=== PATIENT | female | born 1950 | race Caucasian/White ===

== ENCOUNTER 2017-06-24 10:18 | Day surgery (SDC) | payer MEDICARE, BC ==
[~2017-06-24 10:18] MED LIST: Sodium Chloride 0.9% 1,000 ML IV SCH; Sodium Chloride 0.9% 10 ML Syringe FLUSH PRN
[2017-06-24] MEDS ORDERED: Propofol 200 MG/20 ML SDV ONE (11:55)
[2017-06-24 15:32] VITALS: BP 138/80
--- NOTE | 2017-06-24 19:14 | OR ---
DATE OF OPERATION: 06/24/2017 PREOPERATIVE DIAGNOSIS: GERD. POSTOPERATIVE DIAGNOSIS: GERD. PROCEDURE: EGD with biopsy. ANESTHESIA: MAC. ESTIMATED BLOOD LOSS: Minimal. COMPLICATIONS: None. INDICATION FOR THE PROCEDURE: The patient is a 66-year-old female, who has had a long- standing history of GERD. The patient recently has been started on PPI therapy which has alleviated the majority of her symptoms. The patient last had an EGD approximately 10 years ago. She has otherwise been doing well. DESCRIPTION OF THE PROCEDURE: Informed consent was obtained from the patient. The patient was taken to the operating room and placed on the table in the left lateral decubitus position. Monitored anesthesia care was administered. Esophagogastroscope was advanced through the oral cavity down the level of the second portion of the duodenum. Duodenum was normal. Gastric antrum also appeared to be normal. Cold forceps biopsy was taken from the gastric antrum for H. pylori testing. The patient did have several benign-appearing gastric polyps. One was removed for pathology. Retroflexion was performed. No signs of hiatal hernia. Esophagogastroscope was then withdrawn into the esophagus. No signs of Bah's or esophagitis. Esophagogastroscope was then withdrawn. The patient tolerated the procedure well and was brought to the recovery room in good condition. FINDINGS: Gastric polyps and random biopsy for H. pylori. RECOMMENDATIONS: I would continue with PPI therapy. We will follow up on the H. pylori testing as well as gastric polyp pathology. MARY /[id number]
== END 2017-06-24 14:20 | disposition home or self-care (01) ==
LOC: LB.SDS 10:18
PROVIDERS: ATTEND Surgery
DX: K21.9 Gastro-esophageal reflux disease without esophagitis (principal); K29.50 Unspecified chronic gastritis without bleeding; K31.7 Polyp of stomach and duodenum; J32.9 Chronic sinusitis, unspecified; I10 Essential (primary) hypertension; E78.00 Pure hypercholesterolemia, unspecified; M19.90 Unspecified osteoarthritis, unspecified site; Z79.899 Other long term (current) drug therapy; Z88.0 Allergy status to penicillin
CPT/HCPCS: 88305; J2704; J7030

== ENCOUNTER 2018-11-27 08:37 | Emergency (ER) | payer MEDICARE ==
[2018-11-27 09:35] VITALS: BP 134/89; PULSE 74
[2018-11-27] MEDS: Ketorolac 60 MG/2 ML SDV IM ONE (09:44)
--- NOTE | 2018-11-27 09:51 | EDM.PDOC ---
ED HPI GENERAL MEDICAL PROBLEM - General Chief Complaint: Lower Extremity Injury/Pain Stated Complaint: foot injury Time Seen by Provider: 11/27/18 09:00 Source of Information: Reports: Patient History Limitations: Reports: No Limitations - History of Present Illness INITIAL COMMENTS - FREE TEXT/NARRATIVE: According to patient she claims that she has been having pain and redness over the left great toe since yesterday. pain has been gradually getting worse. constant and burning to throbbing at time. No fever or chills. No trauma to the foot. Pt has nt had similar episodes in the past. Onset Date: 11/26/18 Location: Reports: Lower Extremity, Left Quality: Reports: Ache Severity: Moderate Improves with: Reports: None Worsens with: Reports: None Associated Symptoms: Denies: Confusion, Chest Pain, Cough, Diaphoresis, Fever/ Chills, Headaches, Nausea/Vomiting, Rash, Seizure, Shortness of Breath, Syncope , Weakness Treatments OFFICE CASHIER: Reports: Acetaminophen Left Toe-Hailux Pain Score (Numeric/FACES): 10 - Related Data Allergies Allergy/AdvReac Type Severity Reaction Status Date / Time No Known Allergies Allergy Verified 06/23/17 16:35 Home Meds: Home Meds Acetaminophen [Tylenol] 325 mg PO Q4H PRN 06/23/17 [History] Metoprolol Succinate 25 mg PO DAILY 06/23/17 [History] Ubidecarenone [Coq10] 100 mg PO DAILY 06/23/17 [History] Famotidine 10 mg PO DAILY PRN 11/27/18 [History] Furosemide 20 mg PO DAILY 11/27/18 [History] Losartan Potassium 50 mg PO DAILY 11/27/18 [History] Past Medical History Cardiovascular History: Reports: None Respiratory History: Reports: None Gastrointestinal History: Reports: None PRIOR AUTHORIZATION NURSE History: Reports: Other PRIOR AUTHORIZATION NURSE History: parity: 4, gravity: 4 Musculoskeletal History: Reports: Arthritis Neurological History: Reports: None Oncologic (Cancer) History: Reports: None - Past Surgical History Cardiovascular Surgical History: Reports: None GI Surgical History: Reports: Colonoscopy, Polypectomy Musculoskeletal Surgical History: Reports: Knee Replacement Social & Family History - Family History GI: Reports: GERD Review of Systems - Review of Systems Review Of Systems: See Below Constitutional: Denies: Chills, Fever Eyes: Denies: Blurred Vision, Drainage Ears: Denies: Pain, Tinnitus Nose: Denies: Congestion, Epistaxis Mouth/Throat: Denies: Pain, Throat Swelling, Painful Swallowing Respiratory: Denies: Cough, Sputum Cardiovascular: Denies: Chest Pain, Syncope GI/Abdominal: Denies: Abdominal Pain, Nausea, Vomiting Genitourinary: Denies: Dysuria, Hematuria Musculoskeletal: Reports: Foot Pain. Denies: Joint Pain, Joint Swelling Skin: Reports: Erythema. Denies: Bruising, Pruritis, Rash, Wound ED EXAM, GENERAL - Physical Exam Exam: See Below Exam Limited By: No Limitations General Appearance: Alert, WD/WN, No Apparent Distress Eye Exam: Bilateral Eye: EOMI, PERRL Ears: Normal External Exam, Normal Canal, Hearing Grossly Normal, Normal TMs Ear Exam: Bilateral Ear: Auricle Normal, Canal Normal, TM normal Nose: Normal Inspection, Normal Mucosa, No Blood Throat/Mouth: Normal Inspection, Normal Lips, Normal Teeth, Normal Gums, Normal Oropharynx, Normal Voice, No Airway Compromise Head: Atraumatic, Normocephalic Neck: Normal Inspection, Supple, Non-Tender, Full Range of Motion Respiratory/Chest: No Respiratory Distress, Lungs Clear, Normal Breath Sounds, No Accessory Muscle Use, Chest Non-Tender Cardiovascular: Normal Peripheral Pulses, Regular Rate, Rhythm, No Edema, No Gallop, No JVD, No Murmur, No Rub Extremities: Normal Capillary Refill, Pedal Edema, Other (left foot: There is swelling and erythema over around the 1st MTP joint of the foot. Warm adn tender to touch. toe tip appears nomral. rest of the foot exam is normal.) Course - Vital Signs Text/Narrative:: Pt's Uric acid is 8.2, elevated consistent with gout . Pt reassured that she has gout attack. Pathophysiology or gout discussed. Eduction material given. Advised to cut down on purine rich proteins.She did receive Toradol 30mg Im in the emergency room. started on indomethacin 25mg 3 times daily with food, to be taken until pain resolves. IF she starts having recurrent attacks, she will need to be stated on allopurinol. Last Recorded V/S: Last Vital Signs Temp 97.4 F 11/27/18 09:24 Pulse 74 11/27/18 09:24 Resp 13 11/27/18 09:24 BP 134/89 11/27/18 09:24 Pulse Ox 99 11/27/18 09:24 - Orders/Labs/Meds Labs: Laboratory Tests 11/27/18 Range/Units 09:30 Uric Acid 8.2 H (2.6-7.2) mg/dL Meds: Medications Discontinued Medications Generic Name Dose Route Start Last Admin Trade Name Ridge PRN Reason Stop Dose Admin Ketorolac Tromethamine Confirm 11/27/18 09:47 Toradol Administered 11/27/18 09:48 Dose 30 mg .ROUTE .STK-MED ONE Ketorolac Tromethamine 30 mg 11/27/18 09:45 Toradol IM 11/27/18 09:46 ONETIME ONE Departure - Departure Time of Disposition: 10:00 Disposition: Home, Self-Care 01 Condition: Fair Clinical Impression: Gout attack Qualifiers: Gout site: toe Gout etiology: idiopathic Laterality: left Qualified Code(s): M10.072 - Idiopathic gout, left ankle and foot - Discharge Information *PRESCRIPTION DRUG MONITORING PROGRAM REVIEWED*: Not Applicable *COPY OF PRESCRIPTION DRUG MONITORING REPORT IN PATIENT KARRI: Not Applicable Instructions: Low-Purine Eating Plan, Gout, [id number] Referrals: PCP,None [Primary Care Provider] - Forms: ED Department Discharge Additional Instructions: Pt's Uric acid is 8.2, elevated consistent with gout . Pt reassured that she has gout attack. Pathophysiology or gout discussed. Eduction material given. Advised to cut down on purine rich proteins.She did receive Toradol 30mg Im in the emergency room. started on indomethacin 25mg 3 times daily with food, to be taken until pain resolves. IF she starts having recurrent attacks, she will need to be stated on allopurinol. Followup in clinic if symptoms worsen. - Problem List & Annotations (1) Gout attack SNOMED Code(s): 629930239 Code(s): M10.9 - GOUT, UNSPECIFIED Status: Acute Current Visit: Yes Qualifiers: Gout site: toe Gout etiology: idiopathic Laterality: left Qualified Code(s): M10.072 - Idiopathic gout, left ankle and foot - Problem List Review Problem List Initiated/Reviewed/Updated: Yes - Assessment/Plan Assessment:: Gout attack Plan: Pt's Uric acid is 8.2, elevated consistent with gout . Pt reassured that she has gout attack. Pathophysiology or gout discussed. Eduction material given. Advised to cut down on purine rich proteins.She did receive Toradol 30mg Im in the emergency room. started on indomethacin 25mg 3 times daily with food, to be taken until pain resolves. IF she starts having recurrent attacks, she will need to be stated on allopurinol.
[2018-11-27] MEDS ORDERED: Indomethacin 25 MG Cap ONE (10:00)
[2018-11-27] MEDS: Indomethacin 25 MG Cap ONE (10:07)
[2018-11-27] MEDS: Ketorolac 30 MG/ML SDV ONE (14:00)
== END 2018-11-27 10:12 | disposition home or self-care (01) ==
LOC: LB.ED 08:37
DX: M10.072 Idiopathic gout, left ankle and foot (principal)
CPT/HCPCS: 36415; 84550; 96372; 99283; A9270; J1885

== ENCOUNTER 2021-09-27 16:15 | Emergency (ER) | payer MEDICARE ==
[2021-09-27] MEDS ORDERED: Nitrofurantoin Macrocrystal 50 MG Cap ONE (16:45)
[2021-09-27 16:51] VITALS: BP 152/83; PULSE 96
[2021-09-27 17:06] LABS: ESTIMATED GFR 71 mL/min (>60)
[2021-09-27] MEDS ORDERED: Ketorolac 30 MG/ML SDV IVPUSH ONE (17:14)
== END 2021-09-27 16:55 | disposition home or self-care (01) ==
LOC: LB.ED 16:15
DX: N39.0 Urinary tract infection, site not specified (principal); Z88.0 Allergy status to penicillin; Z88.8 Allergy status to other drugs, medicaments and biological substances; Z79.899 Other long term (current) drug therapy
CPT/HCPCS: 36415; 80053; 81001; 85025; 87086; 96374; 99282; 99284-25; A9270-GY; J1885

== ENCOUNTER 2023-05-10 08:53 | Day surgery (SDC) | payer MEDICARE ==
[~2023-05-10 08:53] MED LIST changes: +Lactated Ringers 1,000 ML IV SCH; -Sodium Chloride 0.9% 1,000 ML IV SCH; -Sodium Chloride 0.9% 10 ML Syringe FLUSH PRN
[2023-05-10] MEDS ORDERED: Clindamycin Phosphate 900 MG/6 ML SDV IV ONE (08:54)
[2023-05-10] MEDS: Lactated Ringers 1,000 ML IV SCH (09:34)
[2023-05-10] MEDS ORDERED: Propofol 200 MG/20 ML SDV ONE (11:00)
[2023-05-10] MEDS: Acetaminophen/HYDROcodone 325-5 MG Tab PO PRN (11:25)
[2023-05-10 11:28] VITALS: BP 156/93; PULSE 75
== END 2023-05-10 12:31 | disposition home or self-care (01) ==
LOC: LB.SDS 08:53
PROVIDERS: ATTEND Orthopaedic Surgery
DX: G56.02 Carpal tunnel syndrome, left upper limb (principal); I10 Essential (primary) hypertension
CPT/HCPCS: A9270-GY; J2704; J3490; J7120

== ENCOUNTER 2023-05-31 10:04 | Emergency (ER) | payer MEDICARE ==
[2023-05-31] MEDS: Bacitracin Oint 1 GM U/D Packet TOP ONE (10:41)
[2023-05-31 10:46] VITALS: BP 140/83; PULSE 70
== END 2023-05-31 10:52 | disposition home or self-care (01) ==
LOC: LB.ED 10:04
DX: G89.18 Other acute postprocedural pain (principal); Z48.89 Encounter for other specified surgical aftercare; I10 Essential (primary) hypertension; Z88.0 Allergy status to penicillin; Z88.6 Allergy status to analgesic agent; Z79.899 Other long term (current) drug therapy; Z90.49 Acquired absence of other specified parts of digestive tract; Z90.710 Acquired absence of both cervix and uterus
CPT/HCPCS: 99283

== ENCOUNTER 2024-01-10 08:28 | Day surgery (SDC) | payer MEDICARE ==
[~2024-01-10 08:28] MED LIST changes: +Acetaminophen/HYDROcodone 325-5 MG Tab PO PRN; +Clindamycin Phosphate 900 MG/6 ML SDV IV SCH
[2024-01-10] MEDS: Lactated Ringers 1,000 ML IV SCH (09:40)
[2024-01-10] MEDS: Lidocaine 1% with EPINEPHrine 1:100,000 20 ML MDV INFILT ONE (10:59)
[2024-01-10] MEDS ORDERED: Propofol 200 MG/20 ML SDV ONE (11:00)
[2024-01-10] MEDS ORDERED: Lidocaine 0.5% 50 ML SDV ONE (11:00)
[2024-01-10] MEDS ORDERED: Midazolam 1 MG/ML 2 ML SDV ONE (11:00)
[2024-01-10 11:34] VITALS: BP 141/98; PULSE 77
[2024-01-10] MEDS ORDERED: Clindamycin Phosphate 900 MG in Sodium Chloride 0.9% 100 ML IV ONE (15:00)
== END 2024-01-10 12:05 | disposition home or self-care (01) ==
LOC: LB.SDS 08:28
PROVIDERS: ATTEND Orthopaedic Surgery
DX: G56.01 Carpal tunnel syndrome, right upper limb (principal); I11.0 Hypertensive heart disease with heart failure; I50.9 Heart failure, unspecified; Z88.0 Allergy status to penicillin; Z86.16 Personal history of COVID-19; Z79.899 Other long term (current) drug therapy
CPT/HCPCS: J2250; J2704; J7120